=== PATIENT | male | born 1975 | race Caucasian/White ===

== ENCOUNTER 2016-12-04 11:14 | Emergency (ER) | payer OTHER ==
[~2016-12-04] VITALS: Ht 185.4 cm; Wt 97.5 kg
--- NOTE | ~2016-12-04 | CR181 ---
[facility] A Service of [facility] & [facility] RADIOLOGY TEXT RESULTS PATIENT: MALIA VELASQUEZ LOCATION: [facility] : 71 UNIT #: [id number] AGE: [address]: Shelbie Whittington APRN SEX: M ORDER DR: [id number] [facility] [address] [place], [place] [address] [id number] MR#: [id number] Acc #: [id number] NAME: MALIA VELASQUEZ. : 1975 SEX: M STUDY DATE/TIME: 12/04/2016 12:54 UNIT: [facility] ROOM: STUDY DESCRIPTION: CR Lumbar Spine 2 or 3 Views Attending Physician: Shelbie Whittington A.P.R.N. Ordering Physician: Ed Doctor [id number] [facility] Primary Care Physician: [facility] MEDICAL IMAGING REPORT This report is preliminary unless electronic signature is present EXAM Lumbar spine HISTORY Low back pain after straining back at work today. FINDINGS AP and lateral projections of the lumbar segment show good mineralization of both anterior and posterior elements. They are all anatomically normal without indication of fracture, dislocation, or malignant change of a sclerotic or lytic type. There is no congenital defect noted. The sacroiliac joints are normal. IMPRESSION Normal lumbar spine. Dictated by... Derek Stroud M.D. THIS IS AN ELECTRONICALLY VERIFIED REPORT Derek Stroud M.D. at 12/05/2016 9:36 PM ORACIO/kan TD: 12/05/2016 04:36 JOB #: [id number] MEDICAL IMAGING REPORT Page 1 of 1 COPY
[~2016-12-04 11:14] MED LIST: ASPIRIN81 M1 PO; ASPIRIN81 M2 PO; ATORVASTATIN CA40 MG PO; LIPITOR20 MG PO; METOPROLOL SUCC50 MG PO; NITROGLYGERIN0.4 MG SL; NO MEDICATIONS; TRICOR145 MG PO; VOLTAREN75 MG PO; ZESTRIL5 MG PO
== END 2016-12-04 13:48 | disposition home or self-care (01) ==
LOC: CFTX 11:14 → CED 11:14 → CFTX 12:23
DX: S33.5XXA Sprain of ligaments of lumbar spine, initial encounter (principal); I10 Essential (primary) hypertension; I25.2 Old myocardial infarction; Z23 Encounter for immunization; X50.0XXA Overexertion from strenuous movement or load, initial encounter; Y92.69 Other specified industrial and construction area as the place of occurrence of the external cause; Y99.0 Civilian activity done for income or pay
CPT/HCPCS: 72100; 90471; 96372; 99283; J2360

== ENCOUNTER 2016-12-11 09:10 | Observation (INO) | payer OTHER ==
--- NOTE | ~2016-12-11 | EKG ---
PATIENT: MALIA VELASQUEZ UNIT #: [id number] Ventricular Rate: 88 BPM Atrial Rate: 166 BPM QRS Duration: 116 ms Q-T Interval: 380 ms QTC Calculation(Bezet): 459 ms Calculated R [place]: 38 degrees Calculated T [place]: 104 degrees Diagnosis Line: Atrial fibrillation Diagnosis Line: T wave abnormality, consider lateral ischemia or Diagnosis Line: digitalis effect Diagnosis Line: Abnormal ECG Diagnosis Line: When compared with ECG of 11-DEC-2016 09:24, Diagnosis Line: (unconfirmed) Diagnosis Line: Previous ECG has undetermined rhythm, needs review Diagnosis Line: Borderline criteria for Inferior infarct are no Diagnosis Line: longer Present Diagnosis Line: ST no longer depressed in Anterolateral leads Diagnosis Line: T wave inversion no longer evident in Inferior Diagnosis Line: leads Diagnosis Line: Nonspecific T wave abnormality no longer evident Diagnosis Line: in Anterior leads Diagnosis Line: T wave inversion more evident in Lateral leads Diagnosis Line: Confirmed by CELSO MOTA MD ([id number]) on 12/14/2016 Diagnosis Line: 10:49:57 PM INTERPRETING MD: NAKUL BUSTOS
--- NOTE | ~2016-12-11 | CR72 ---
[facility] A Service of [facility] & [facility] RADIOLOGY TEXT RESULTS PATIENT: MALIA VELASQUEZ LOCATION: [facility] [id number] : [birth year] UNIT #: [id number] AGE: [address]: Analy Vera MD SEX: M ORDER DR: [id number] [facility] [address] [place], [place] [address] [id number] I MR#: [id number] Acc #: [id number] NAME: MALIA VELASQUEZ. : 1975 SEX: M STUDY DATE/TIME: 12/11/2016 9:53 UNIT: [facility] ROOM: 08905 STUDY DESCRIPTION: CR Chest Single View Portable Attending Physician: Analy Vera M.D. Ordering Physician: Kathrine Houston M.D. [facility] REPORT This report is preliminary unless electronic signature is present EXAM Portable chest, 12/11/16 HISTORY Chest pain today COMPARISON STUDIES 09/12/14 FINDINGS A portable view of the chest was obtained. The heart size and vascularity are normal. The lungs are clear. Sternotomy wires are present. IMPRESSION No active disease. Dictated by... Derek Stroud M.D. THIS IS AN ELECTRONICALLY VERIFIED REPORT Derek Stroud M.D. at 12/11/2016 12:46 PM ORACIO/bernadette TD: 12/11/2016 11:31 JOB #: [id number] MEDICAL IMAGING REPORT Page 1 of 1 COPY
--- NOTE | ~2016-12-11 | DS ---
Unit #: [id number] #: [id number] Patient: MALIA VELASQUEZ [id number] [address] [address] [id number] I MR#: [id number] NAME: MALIA VELASQUEZ. ROOM: 568 Age: 41 Sex: M Admission Date: 12/11/2016 : 1975 Discharge Date: 12/13/2016 Attending Physician: Hammad Caballero M.D. [facility] DISCHARGE SUMMARY DISCHARGE DIAGNOSES 1. New-onset atrial fibrillation with rapid ventricular response, converted to normal sinus rhythm. 2. Chest pain secondary to atrial fibrillation. 3. Elevated troponin peak of 0.48. 4. Myocardial infarction x2, status post coronary artery bypass graft x4 in 2012, with three out of four grafts patent per cardiac catheterization in 2014. 5. Hypertension. 6. Uncontrolled hyperlipidemia. 7. Noncompliance. 8. A 2D echocardiogram on December 11, 2016, shows an ejection fraction of 50% with mild concentric left ventricular hypertrophy and mild septal hypokinesis with inferior wall hypokinesis. There is trace mitral regurgitation. 9. Former smoker. DISCHARGE MEDICATIONS 1. Atorvastatin 80 mg at bedtime. 2. Metoprolol tartrate 50 mg b.i.d. 3. Lisinopril 5 mg at bedtime. 4. Aspirin 81 mg daily. 5. Eliquis 5 mg b.i.d. HOSPITAL COURSE This is a 41-year-old white male who presented to the emergency room with the complaints of chest pain and palpitations. He was found to be in atrial fibrillation with rapid ventricular response with a rate up to 166 beats per minute. He was treated in the emergency room with a Cardizem bolus, followed by continuous infusion. Cardizem was discontinued, and the patient was started on amiodarone. He converted to normal sinus rhythm. His EKG showed no acute ischemic changes. He had a complaint of chest pain which was felt secondary to atrial fibrillation. His troponin peaked at 0.48 where he was ruled out for an acute myocardial infarction. He was started on aspirin and Lovenox. Echocardiogram found the patient to have normal left ventricular systolic function with no significant valvular heart disease. His blood pressure was elevated on arrival at 164/120 mmHg. Patient was not on any cardiac medications prior to his admission. He was given lisinopril 5 mg daily. He was also started on low-dose metoprolol at 25 mg q.6 hours but was later changed to 50 mg b.i.d. His blood pressure was better controlled. His TSH was normal. There was elevation of his cholesterol level at 268 with triglycerides 794. He was started on high-intensity statin with Unit #: [id number] #: [id number] Patient: MALIA VELASQUEZ Lipitor 80 mg daily. Because he had a CHADS2-VASc score of 2, he will need to be on long-term anticoagulation. The cost of Eliquis for the patient was zero co-pay at the pharmacy at [facility]. Lovenox was discontinued, and the patient was given his first dose of Eliquis prior to discharge. He had a seven-beat run of nonsustained ventricular tachycardia on the day prior to discharge. After beta amador was instituted, he had no further arrhythmias. He remains in normal sinus rhythm. He is currently chest pain free, and blood pressure is currently controlled. He is stable for discharge today. PHYSICAL EXAMINATION VITAL SIGNS: Blood pressure 147/97, heart rate 64, and temperature 98. CHEST: Clear to auscultation. HEART: S1 and S2, regular rate and rhythm. No murmurs, rubs, or clicks. ABDOMEN: Soft and nontender with bowel sounds present. EXTREMITIES: Without leg edema. SKIN: Warm and dry. DIAGNOSTIC STUDIES LABORATORY: Hemoglobin 15.1, hematocrit 42.9, platelet count 165,000, and white count 10.3. Sodium 136, potassium 4, BUN 14, creatinine 0.8, and glucose 121. Troponin 0.18. Cholesterol 268, triglycerides 794, and HDL 25. TSH 0.52. CARDIOLOGY: Rhythm strip shows normal sinus rhythm. DISCHARGE INSTRUCTIONS 1. Patient will be discharged home today. 2. Follow up with Dr. Lainez on January 11 at 10:45 a.m. 3. Patient will need an outpatient Holter monitor to evaluate for control of ventricular tachycardia. 4. Patient has been advised to continue his cardiac medicines and follow up with Dr. Lainez in the office because of his significant history of coronary artery disease, ventricular tachycardia, and atrial fibrillation. 5. The cost of Eliquis is zero dollars for the patient. He has been given a prescription for all his medications including Eliquis. He has been instructed to be compliant in taking his medications as prescribed. 6. Patient may return to work without restrictions on (1) . 1. Dictated by... Larry Cameron A.P.R.N. for Mayte Herrera/dolores TD: 12/14/2016 15:03 JOB #: [id number] CC: Checo Lainez M.D. Unit #: [id number] #: [id number] Patient: MALIA VELASQUEZ DISCHARGE SUMMARY Page 1 of 1 X Larry Cameron APRN X DISCHARGE SUMMARY
--- NOTE | ~2016-12-11 | EKG ---
PATIENT: MALIA VELASQUEZ UNIT #: [id number] Ventricular Rate: 83 BPM Atrial Rate: 72 BPM QRS Duration: 116 ms Q-T Interval: 372 ms QTC Calculation(Bezet): 437 ms Calculated R [place]: 74 degrees Calculated T [place]: -60 degrees Diagnosis Line: Atrial fibrillation Diagnosis Line: Left ventricular hypertrophy with QRS widening and Diagnosis Line: repolarization abnormality Diagnosis Line: Possible Inferior infarct (cited on or before Diagnosis Line: 11-DEC-2016) Diagnosis Line: Marked ST abnormality, possible anterior Diagnosis Line: subendocardial injury Diagnosis Line: Abnormal ECG Diagnosis Line: When compared with ECG of 11-DEC-2016 09:23, Diagnosis Line: (unconfirmed) Diagnosis Line: No significant change was found Diagnosis Line: Confirmed by CELSO MOTA MD ([id number]) on 12/14/2016 Diagnosis Line: 6:58:51 AM INTERPRETING MD: NAKUL BUSTOS
--- NOTE | ~2016-12-11 | EKG ---
PATIENT: MALIA VELASQUEZ UNIT #: [id number] Ventricular Rate: 56 BPM Atrial Rate: 56 BPM P-R Interval: 164 ms QRS Duration: 116 ms Q-T Interval: 440 ms QTC Calculation(Bezet): 424 ms P [place]: 25 degrees Calculated R [place]: 45 degrees Calculated T [place]: 114 degrees Diagnosis Line: Sinus bradycardia Diagnosis Line: Left ventricular hypertrophy with QRS widening Diagnosis Line: Possible Inferior infarct , age undetermined Diagnosis Line: ST and T wave abnormality, consider lateral ischemia Diagnosis Line: Abnormal ECG Diagnosis Line: When compared with ECG of 12-DEC-2016 08:02, Diagnosis Line: (unconfirmed) Diagnosis Line: Sinus rhythm has replaced Atrial fibrillation Diagnosis Line: Vent. rate has decreased BY 32 BPM Diagnosis Line: T wave inversion now evident in Anterior leads Diagnosis Line: Confirmed by CELSO MOTA MD ([id number]) on 12/14/2016 Diagnosis Line: 10:52:47 PM INTERPRETING MD: NAKUL BUSTOS
--- NOTE | ~2016-12-11 | HP ---
Unit #: [id number] #: [id number] Patient: MALIA VELASQUEZ [id number] [facility]. [place], [place] [address] [id number] I MR#: [id number] NAME: MALIA VELASQUEZ. ROOM: 27832 Age: 41 Sex: M Admission Date: 12/11/2016 : 1975 Attending Physician: Analy Vera M.D. Primary Care Physician: [facility] HISTORY AND PHYSICAL HISTORY OF PRESENT ILLNESS This is a 41-year-old white male with a history of having previous WI, coronary artery disease in 2006 and 2007 percutaneous coronary intervention and stents placed, was done at [facility]; his last stents being in 2009. In 2012, the patient had a WI and had a catheterization and was sent for coronary bypass graft x4 vessels. In 2014, the patient had a non-STEMI elevated troponin. Dr. La did a cardiac catheterization here at [facility] that revealed a saphenous vein graft to the RCA and saphenous vein graft to the diagonal was patent. FLOREZ to the LAD was patent and a saphenous vein graft to the obtuse marginal was closed with collaterals from the RCA graft. Recommendation was medical treatment. His ejection fraction was 40% at the time. The patient also has hypertension and hyperlipidemia. He quit smoking around that time. The patient was discharged back in 2014 on a beta amador, DEEPIKA inhibitor, statin and aspirin. The patient quit taking that medication for over a year, he says. He has not followed up with a head concierge. He said he was feeling fine. He did not think he had to follow up. He does go to his primary care physician for other illnesses. He said he has been doing fairly well. He works at the [employer]. He works a lot of hours. He said yesterday at work he was fine. This morning he woke up about 7:30, he just had a heavy pressure, tightness and sometimes sharp pains substernally. He felt like it was radiating up to his neck. He felt short of breath and weak. Next, he was bout into the emergency room where it was found he was in atrial fibrillation with rapid ventricular response with ventricular rates as high as 160s. It does show his previous inferior infarct. At the time, his blood pressure was 164/120. He was given a 25 mg of IV Cardizem bolus followed by a drip. The patient also was given an aspirin and 1-inch nitro paste placed to his chest wall. The patient will be admitted. The patient currently still remains in atrial fibrillation, his rate is better controlled in the 80s and low 100s and the chest tightness has eased off. The patient will be admitted for further evaluation and management. PAST MEDICAL HISTORY In had WI status post percutaneous coronary intervention and stents and 2010 and 2011 had additional percutaneous coronary intervention and stents at [facility] as well as [facility], which the last stents were in 2009. Next, in 2012 he had a 4-vessel coronary artery bypass graft, in 09/2014, had an elevated troponin indicating a non-STEMI. Cardiac catheterization performed by Dr. La showed saphenous vein graft to the RCA and saphenous vein graft to the diagonal were patent. FLOREZ to the LAD patent, saphenous vein graft to the obtuse marginal was Unit #: [id number] #: [id number] Patient: MALIA VELASQUEZ closed, collaterals from the RCA graft - recommendation was medical management. His ejection fraction was 40%. Next, a 2-D echocardiogram in 2014 shows left ventricular ejection fraction of 35-40% with mild pulmonic regurgitation, mild to moderate inferior wall hypokinesis, hypertension, hyperlipidemia, quit smoking in 2012, noncompliance. PAST SURGICAL HISTORY 1. Multiple percutaneous coronary interventions and stents. The patient reports x7. 2. 4 vessel coronary artery bypass graft in 2012 HOME MEDICATIONS Currently is on nothing. On his last discharge here Dr. La prescribed 1. Aspirin 81 mg daily 2. Metoprolol succinate 50 mg p.o. daily 3. Lipitor 40 mg daily 4. Lisinopril 5 mg daily 5. He has been taking prednisone DosePak for back pain ALLERGIES No known drug allergies. SOCIAL HISTORY The patient lives with his spouse. The patient works in the [employer]. He quit smoking in 2012. No alcohol or illicit drug abuse. FAMILY HISTORY His mother has had two coronary artery stents and she is doing well. His father and siblings are in generally good health. No CAD. REVIEW OF SYSTEMS CONSTITUTIONAL: Denies fever or chills. No recent weight gain or weight loss. HEENT: Denies headache or dizziness. No visual or hearing changes. No lymphadenopathy, thyromegaly and no difficulty swallowing. CARDIOVASCULAR: Chest pressure, tightness, occasional sharp shooting pain. Complains of heart racing. No increased lower extremities edema. PULMONARY: Increased shortness of breath with chest discomfort and palpitations. Denies paroxysmal nocturnal dyspnea or orthopnea. GI: Denies nausea, vomiting, diarrhea or abdominal pain. NEUROLOGICAL: No focal weakness. PHYSICAL EXAMINATION GENERAL: On exam, Mr. Velasquez is a 41-year-old white male in no acute respiratory distress. He is awake, alert and oriented. VITAL SIGNS: Currently, his blood pressure is 135/88, his heart rate is 114, respirations 18, he is afebrile. O2 saturations 96% on room air. NECK: Trachea midline. No thyromegaly or lymphadenopathy. Normal carotid upstrokes. No jugular venous distention. HEART: S1, S2. Irregular rate and rhythm. No clicks, murmurs or rubs. LUNGS: Bilaterally clear throughout. No wheezes, rales or rhonchi. ABDOMEN: Soft, nontender, positive bowel sounds present. EXTREMITIES: Pedal pulses are palpable. No pedal edema. DIAGNOSTIC STUDIES LABORATORY: WBC 15.2, hemoglobin 17.8, hematocrit 51.2, platelets Unit #: [id number] #: [id number] Patient: MALIA VELASQUEZ 266,000. CK-MB is less than 1, troponin less than 0.05. Glucose 289, BUN 12, creatinine 0.8, e-GFR is 109.5, sodium 137, potassium 3.7, chloride 105, CO2 of 22, calcium is 9.5, total protein 8.4, albumin 4.9, bilirubin total 1.4, AST 21, ALT 28 and alkaline phosphatase is 96. BNP is pending. CARDIOLOGY: EKG shows atrial fibrillation with rapid ventricular response. Ventricular rate 166 beats per minute. Inferior infarct age undetermined. Some ST T wave abnormalities in anterolateral from inferior leads. His most current EKG shows atrial fibrillation with better controlled rate. Ventricular rate is 108 beats per minute. Previous inferior infarct, age undetermined. Some ST T wave abnormalities in anterolateral leads. Some ST depression. IMPRESSION 1. New onset atrial fibrillation with rapid ventricular response 2. Poorly controlled hypertension 3. Chest pain, evaluate for acute coronary syndrome 4. History of coronary artery disease, previous myocardial infarcts, percutaneous coronary intervention and stents and then later had a coronary artery bypass graft x4 (last cardiac catheterization 2014 showed saphenous vein graft to the right coronary artery and to diagonal are patent. Left internal mammary artery to the left anterior descending patent, saphenous vein graft to the obtuse marginal close, but collateral from the right coronary artery graft - medical management. Ejection fraction is 40%. 5. In 2015, he had an echocardiogram left ventricular ejection fraction of 35-40% with mild pulmonic regurgitation, mild to moderate inferior wall hypokinesis 6. Hyperlipidemia 7. Noncompliance 8. Reformed smoker 9. Hyperglycemia PLAN 1. Continue to control the patient's rate on the Cardizem drip for now, but we will start oral beta amador, metoprolol 25 mg every 6 hours and then taper off the Cardizem drip as tolerated. We will anticoagulated with Lovenox 1 mg/kg subcutaneous b.i.d. and we will make a recommendation on chronic anticoagulation and check the costs of some of the newer anticoagulations. 2. Continue to monitor cardiac enzymes and EKG. The initial cardiac enzymes are negative on exam and most likely his chest discomfort was secondary to the atrial fibrillation with rapid ventricular response, but we will monitor closely. Obtain a two-dimensional echocardiogram to evaluate his left ventricular function and valves. His last echocardiogram was ejection fraction of 35-40%. 3. We will start low-dose Lisinopril 5 mg p.o. daily for his cardiomyopathy. 4. On exam, he does not appear to have any signs of symptoms of acute congestive heart failure. 5. We will check his magnesium, a TSH level and evaluate. Obtain a fasting lipid profile and evaluate. 6. Further recommendations pending per Dr. Lamb. 7. The patient's glucose is 289. He does state he is on prednisone for a recent back injury, which I do not have that listed. We will check a hemoglobin A1C due to his hyperglycemia. It could possibly be secondary from the steroids, but also following with [employer] in the Unit #: [id number] #: [id number] Patient: MALIA VELASQUEZ morning and at bedtime and follow with low-dose sliding scale insulin protocol for now. Dictated by Yordan Hoover/christina TD: 12/11/2016 13:19 JOB #: [id number] HISTORY AND PHYSICAL Page 1 of 1 X Marina Hernandez APRN HISTORY AND PHYSICAL
--- NOTE | ~2016-12-11 | EKG ---
PATIENT: MALIA VELASQUEZ UNIT #: [id number] Ventricular Rate: 109 BPM Atrial Rate: 150 BPM QRS Duration: 108 ms Q-T Interval: 348 ms QTC Calculation(Bezet): 468 ms Calculated R [place]: 77 degrees Calculated T [place]: -69 degrees Diagnosis Line: Atrial fibrillation with rapid ventricular Diagnosis Line: response Diagnosis Line: Possible Inferior infarct (cited on or before Diagnosis Line: 11-DEC-2016) Diagnosis Line: Marked ST abnormality, possible anterolateral Diagnosis Line: subendocardial injury Diagnosis Line: Abnormal ECG Diagnosis Line: When compared with ECG of 11-DEC-2016 09:16, Diagnosis Line: (unconfirmed) Diagnosis Line: Vent. rate has decreased BY 57 BPM Diagnosis Line: No significant change was found Diagnosis Line: Confirmed by CELSO MOTA MD ([id number]) on 12/14/2016 Diagnosis Line: 6:57:46 AM INTERPRETING MD: NAKUL BUSTOS
--- NOTE | ~2016-12-11 | EKG ---
PATIENT: MALIA VELASQUEZ UNIT #: [id number] Ventricular Rate: 166 BPM Atrial Rate: 174 BPM QRS Duration: 104 ms Q-T Interval: 284 ms QTC Calculation(Bezet): 471 ms Calculated R [place]: 75 degrees Calculated T [place]: -79 degrees Diagnosis Line: Atrial fibrillation with rapid ventricular Diagnosis Line: response Diagnosis Line: Inferior infarct , age undetermined Diagnosis Line: Marked ST abnormality, possible anterior Diagnosis Line: subendocardial injury Diagnosis Line: Abnormal ECG Diagnosis Line: When compared with ECG of 11-SEP-2014 23:56, Diagnosis Line: Significant changes have occurred Diagnosis Line: Confirmed by CELSO MOTA MD ([id number]) on 12/14/2016 Diagnosis Line: 6:57:19 AM INTERPRETING MD: NAKUL BUSTOS
--- NOTE | ~2016-12-11 | EKG ---
PATIENT: MALIA VELASQUEZ UNIT #: [id number] Ventricular Rate: 57 BPM Atrial Rate: 57 BPM P-R Interval: 166 ms QRS Duration: 112 ms Q-T Interval: 444 ms QTC Calculation(Bezet): 432 ms P [place]: 28 degrees Calculated R [place]: 48 degrees Calculated T [place]: 99 degrees Diagnosis Line: Sinus bradycardia Diagnosis Line: ST and T wave abnormality, consider lateral ischemia Diagnosis Line: Abnormal ECG Diagnosis Line: When compared with ECG of 12-DEC-2016 13:13, Diagnosis Line: (unconfirmed) Diagnosis Line: No significant change was found Diagnosis Line: Confirmed by CELSO MOTA MD ([id number]) on 12/14/2016 Diagnosis Line: 11:36:05 PM INTERPRETING MD: NAKUL BUSTOS
[2016-12-11 09:52] LABS: POC - CKMB <1.0 ng/mL (0.0-7.9); POC - TROPONIN <0.05 ng/mL (<=0.05)
[2016-12-11 09:55] LABS: BASOPHIL% 0.3 % (0-2.5); EOSINOPHIL% 0.1 % (0.0-7.0); HEMATOCRIT 51.2 % (38.0-50.0); HEMOGLOBIN 17.8 gm/dL (13.0-16.0); LYMPHOCYTE# 1.9 X10e3 (1.0-3.5); LYMPHOCYTE% 12.7 % (17.0-45.0); MEAN CELL VOLUME 86.9 FL (83-96); MEAN CORPUSCULAR HEMOGLOBIN 30.3 PG (28-34); MEAN CORPUSCULAR HGB CONC 34.9 g/dL (30-36); MEAN PLATELET VOLUME 8.5 FL (6.5-11.5); MONOCYTE# 0.5 X10e3 (0-1.0); MONOCYTE% 3.2 % (3.0-12.0); NEUTROPHIL# 12.7 X10e3 (1.5-7.1); NEUTROPHIL% 83.7 % (40-75); PLATELET COUNT 266 X10e3 (140-420); RED BLOOD COUNT 5.89 X10e (3.90-5.60); RED CELL DISTRIBUTION WIDTH 14.1 % (11.0-15.5); WHITE BLOOD COUNT 15.2 X10e3 (4.0-10.5)
[2016-12-11 09:57] LABS: DIFF IND YES
[2016-12-11 10:05] LABS: PARTIAL THROMBOPLASTIN TIME 27.3 SECONDS (23.5-31.3); PROTHROMBIN TIME (PATIENT) 10.6 SECONDS (10.0-11.7)
[2016-12-11 10:09] LABS: PLATELET ESTIMATE NORMAL (NORMAL)
[2016-12-11 10:23] LABS: ALBUMIN SERUM 4.9 g/dL (3.5-5.0); ALKALINE PHOSPHATASE 96 U/L (32-92); ALT (SGPT) 28 U/L (10-40); AST (SGOT) 21 U/L (10-42); BILIRUBIN, DIRECT 0.1 mg/dL (0.0-0.2); BILIRUBIN,INDIRECT 1.3 mg/dL (0.0-0.9); BILIRUBIN,TOTAL 1.4 mg/dL (0.2-2.0); BLOOD UREA NITROGEN 12 mg/dL (9-23); CALCIUM SERUM 9.5 mg/dL (8.4-10.2); CARBON DIOXIDE 22 mmol/L (22-31); CHLORIDE 105 mmol/L (100-111); CREATININE SERUM 0.8 mg/dL (0.6-1.4); GLOM FILT RATE Estimated 109.5 mL/min (>60); GLUCOSE FASTING 289 mg/dL (70-110); POTASSIUM 3.7 mmol/L (3.5-5.1); PROTEIN TOTAL SERUM 8.4 g/dL (6.0-8.3); SODIUM 137 mmol/L (135-145)
[2016-12-11 10:49] LABS: ALCOHOL BLOOD <5 mg/dL (0)
[2016-12-11 11:56] LABS: AMPHETAMINE NEG (NEG); BARBITURATES NEG (NEG); BENZODIAZEPINES NEG (NEG); COCAINE NEG (NEG); MARIJUANA NEG (NEG); OPIATES NEG (NEG); TRICYCLIC ANTIDEPRESSANTS NEG (NEG); U METHADONE NEG (NEG)
[2016-12-11 12:01] LABS: CHOLESTEROL 308 mg/dL (0-200); HDL CHOLESTEROL 36 mg/dL (29-75); MAGNESIUM 1.8 mg/dL (1.6-3.0)
[2016-12-11 12:02] LABS: TRIGLYCERIDES 588 mg/dL (10-160)
[2016-12-11] MEDS ORDERED: NO MEDICATIONS (14:47)
[2016-12-11 18:28] LABS: %MB 12.3 % (0.0-4.0); MB 10.6 ng/ml
[2016-12-12 00:10] LABS: %MB 10.8 % (0.0-4.0); MB 8.4 ng/ml
[2016-12-12 03:37] LABS: BASOPHIL# 0.1 X10e3 (0-0.3); BASOPHIL% 0.7 % (0-2.5); DIFF IND NO; EOSINOPHIL# 0.2 X10e3 (0-0.7); HEMATOCRIT 46.6 % (38.0-50.0); LYMPHOCYTE# 5.4 X10e3 (1.0-3.5); MEAN CELL VOLUME 86.3 FL (83-96); MEAN CORPUSCULAR HEMOGLOBIN 29.7 PG (28-34); MEAN CORPUSCULAR HGB CONC 34.4 g/dL (30-36); MEAN PLATELET VOLUME 8.3 FL (6.5-11.5); MONOCYTE% 5.6 % (3.0-12.0); NEUTROPHIL# 11.8 X10e3 (1.5-7.1); NEUTROPHIL% 63.7 % (40-75); PLATELET COUNT 203 X10e3 (140-420); RED CELL DISTRIBUTION WIDTH 13.7 % (11.0-15.5); WHITE BLOOD COUNT 18.5 X10e3 (4.0-10.5)
[2016-12-12 03:54] LABS: ALBUMIN SERUM 3.8 g/dL (3.5-5.0); ALKALINE PHOSPHATASE 76 U/L (32-92); ALT (SGPT) 23 U/L (10-40); AST (SGOT) 19 U/L (10-42); BILIRUBIN,TOTAL 0.6 mg/dL (0.2-2.0); BLOOD UREA NITROGEN 12 mg/dL (9-23); CALCIUM SERUM 8.9 mg/dL (8.4-10.2); CARBON DIOXIDE 25 mmol/L (22-31); CHLORIDE 108 mmol/L (100-111); CHOLESTEROL 268 mg/dL (0-200); CREATININE SERUM 0.8 mg/dL (0.6-1.4); GLOM FILT RATE Estimated 109.5 mL/min (>60); GLUCOSE FASTING 154 mg/dL (70-110); HDL CHOLESTEROL 25 mg/dL (29-75); MAGNESIUM 1.9 mg/dL (1.6-3.0); PROTEIN TOTAL SERUM 6.6 g/dL (6.0-8.3); SODIUM 138 mmol/L (135-145)
[2016-12-12 04:00] LABS: TRIGLYCERIDES 794 mg/dL (10-160)
[2016-12-13 07:31] LABS: BASOPHIL# 0.1 X10e3 (0-0.3); EOSINOPHIL# 0.2 X10e3 (0-0.7); EOSINOPHIL% 1.5 % (0.0-7.0); HEMATOCRIT 42.9 % (38.0-50.0); HEMOGLOBIN 15.2 gm/dL (13.0-16.0); LYMPHOCYTE# 3.4 X10e3 (1.0-3.5); LYMPHOCYTE% 32.9 % (17.0-45.0); MEAN CELL VOLUME 86.9 FL (83-96); MEAN CORPUSCULAR HEMOGLOBIN 30.9 PG (28-34); MEAN CORPUSCULAR HGB CONC 35.5 g/dL (30-36); MEAN PLATELET VOLUME 9.2 FL (6.5-11.5); MONOCYTE# 0.7 X10e3 (0-1.0); MONOCYTE% 6.6 % (3.0-12.0); PLATELET COUNT 165 X10e3 (140-420); RED BLOOD COUNT 4.93 X10e (3.90-5.60); RED CELL DISTRIBUTION WIDTH 13.8 % (11.0-15.5); WHITE BLOOD COUNT 10.3 X10e3 (4.0-10.5)
[2016-12-13 07:44] LABS: BUN/CREATININE RATIO 17.5; CALCIUM SERUM 8.8 mg/dL (8.4-10.2); CREATININE SERUM 0.8 mg/dL (0.6-1.4); GLOM FILT RATE Estimated 109.5 mL/min (>60)
[2016-12-13 07:55] LABS: DIFF IND NO
[2016-12-13] MEDS ORDERED: LIPITOR80 MG PO (11:22)
[2016-12-13] MEDS ORDERED: METOPROLOL TAR25 MG PO (11:25)
[2016-12-13] MEDS ORDERED: ASPIRIN81 MG PO (11:27)
[2016-12-13] MEDS ORDERED: LISINOPRIL5 MG PO (11:27)
[2016-12-13] MEDS ORDERED: ELIQUIS5 MG PO (11:32)
== END 2016-12-13 12:26 | disposition home or self-care (01) ==
LOC: CED 09:10 → CEDOF 10:34 → CED 11:19 → CEDOF 11:19 → C5C 15:14 → CEDOF 15:14 → C5C 12-13 07:24
PROVIDERS: Emergency Medicine; Family Medicine; Nurse Practitioner
DX: I48.91 Unspecified atrial fibrillation (principal); I25.2 Old myocardial infarction; I25.10 Atherosclerotic heart disease of native coronary artery without angina pectoris; I11.9 Hypertensive heart disease without heart failure; E78.5 Hyperlipidemia, unspecified; I34.0 Nonrheumatic mitral (valve) insufficiency; R73.9 Hyperglycemia, unspecified; Z87.891 Personal history of nicotine dependence; Z79.01 Long term (current) use of anticoagulants; Z79.82 Long term (current) use of aspirin; Z79.899 Other long term (current) drug therapy; Z95.5 Presence of coronary angioplasty implant and graft; Z95.1 Presence of aortocoronary bypass graft; Z91.19 Patient's noncompliance with other medical treatment and regimen
CPT/HCPCS: 36415; 71010; 80048; 80053; 80061; 80076; 80307; 82550; 82553; 82947; 83036; 83735; 83880; 84443; 84484; 85025; 85610; 85730; 93005; 93306; 96374; 99285; G0378; G0480; J0153; J0282; J1650; J1815